=== PATIENT | male | born 1945 ===

== ENCOUNTER 2024-01-25 13:06 | Emergency (ER) | payer MEDICARE, SELFPAY ==
[2024-01-25] VITALS (9 sets, daily range): BP systolic 113–162; BP diastolic 72–93; PULSE 85–113; RESP 12–20; TEMP 36.5–36.8; O2SAT 97–100
--- NOTE | ~2024-01-25 | CT_ITS ---
EXAMINATION: CT brain wo con DATE: 01/25/2024 15:27 INDICATION: Facial numbness TECHNIQUE: Computed tomography (CT) of the head was performed without intravenous contrast. Sagittal and coronal reconstructions were performed. The mA was adjusted according to patient size. Iterative reconstruction technique was employed. The dose-length product was 983.67 mGy-cm. COMPARISON: None FINDINGS: No acute intracranial hemorrhage, acute infarction or abnormal extra axial fluid collection. There is mild scattered white matter hypoattenuation consistent with chronic small vessel ischemic disease. S ymmetric prominence of the sulci consistent with mild age-appropriate diffuse cerebral volume loss. V entricles are normal and symmetric with normal variant cavum septum pellucidum anteriorly.. No mass/m ass effect. The orbitsand paranasal sinuses are normal. Bilateral mastoid effusions. IMPRESSION: 1. Normal aging brain. No acute intracranial process. 2. Bilateral mastoid effusions. Reviewed, dictated and finalized at location A.
--- NOTE | 2024-01-25 13:12 | ECG_ITS ---
Test Date: 2024-01-25 13:15:11 Measurements Intervals [place] Rate: 85 P: 31 ND: 190 QRS: 6 QRSD: 94 T: 32 QT: 324 QTc: 387 Interpretive Statements SINUS RHYTHM LOW QRS VOLTAGE IN PRECORDIAL LEADS [QRS DEFLECTION < 1.0 mV IN CHEST LEADS] NONSPECIFIC T-WAVE ABNORMALITY No previous ECG available for comparison Electronically Signed On 01-25-2024 14:19:50 CDT by Alejandro Rogers M.D.
[2024-01-25 13:17] LABS: Glucose Point of Care 278 mg/dl (65-105)
[2024-01-25 15:00] LABS: Glucose Point of Care 238 mg/dl (65-105)
--- NOTE | 2024-01-25 16:36 | ED.GENADULT ---
HPI - General Adult General Chief complaint: Neuro Symptoms/Deficit Stated complaint: right side facial numbness x 4 days Time Seen by Provider: 01/25/24 15:04 History of Present Illness HPI narrative: Patient is a 78-year-old male who presents to the emergency department this afternoon from [facility] due to concern for right-sided facial numbness for the past 4 days. Patient felt as though his symptoms worsen disease or decided to come to the emergency department for further evaluation. Patient denies any additional symptoms including blurry vision, focal weakness, headaches, extremity numbness and tingling. Patient has no facial weakness and good symmetry on initial triage assessment, patient reports equal sensation to bilateral face on examination. Denies any chest pain or shortness of breath, any nausea, vomiting or abdominal pain and denies any urinary symptoms including dysuria. No additional symptoms or concerns at this time. Related Data Home Medications Medication Instructions Recorded Confirmed amlodipine 10 mg tablet 10 mg PO DAILY 11/14/22 01/22/24 aspirin 81 mg tablet,delayed 81 mg PO DAILY 11/14/22 01/22/24 release clopidogrel 75 mg tablet 75 mg PO DAILY 11/14/22 01/22/24 dapagliflozin propanediol 10 mg 10 mg PO DAILY 11/14/22 01/22/24 tablet (Farxiga) duloxetine 60 mg capsule,delayed 60 mg PO DAILY 11/14/22 01/22/24 release ergocalciferol (vitamin D2) 1,250 1,250 mcg PO WEEKLY 11/14/22 01/22/24 mcg (50,000 unit) capsule furosemide 40 mg tablet 40 mg PO .Every Other Day 11/14/22 01/22/24 gabapentin 300 mg capsule 300 mg PO TID 11/14/22 01/22/24 levothyroxine 75 mcg capsule 75 mcg PO DAILY 11/14/22 01/22/24 lidocaine 4 % topical patch 1 patch topical DAILY PRN 11/14/22 01/22/24 losartan 100 mg tablet 100 mg PO DAILY 11/14/22 01/22/24 metoprolol tartrate 25 mg tablet 25 mg PO BID 11/14/22 01/22/24 pantoprazole 40 mg tablet,delayed 40 mg PO QAM 11/14/22 01/22/24 release rosuvastatin 40 mg tablet 40 mg PO DAILY 06/22/23 08/29/24 Allergies Allergy/AdvReac Type Severity Reaction Status Date / Time nitroglycerin AdvReac Mild Low Blood Verified 01/25/24 13:11 Pressure Review of Systems Review of Systems: All systems are reviewed and are negative unless stated otherwise in the HPI. [facility] Past Medical History Medical History Anemia Diabetes mellitus Essential hypertension History of multinodular goiter Hx of completed stroke Hx of herpes zoster Hyperlipidemia Obstructive sleep apnea Type 2 diabetes mellitus Vitamin D deficiency Surgical History Surgical History History of ear, nose, and throat (ENT) surgery Family History Family History Mother Heart disease Father Heart disease Diabetes mellitus Social History Social History Smoking status: Never smoker Alcohol intake: never Substance use: never Exam Narrative: General: Alert, awake, afebrile, in no acute distress. HEENT: PERRL, no rhinorrhea, no post nasal drip, oropharynx clear. Cardiovascular: Regular rate and rhythm, no murmurs, rubs or gallops, no peripheral edema. Respiratory: Clear to auscultation bilaterally, no tachypnea, no wheezing, no rhonchi, no rubs, no respiratory distress. Abdomen: Soft, nontender, nondistended, no rebound, no guarding, no peritoneal signs. Musculoskeletal: No joint swelling or deformity, normal muscle tone. Skin: No rashes or petechia, no signs of infection. Neurological: Alert and oriented to person, place, and time. Follows all commands. No focal deficits, 5/5 motor strength in the bilateral upper and lower extremity, sensation intact in the bilateral upper and lower extremity, cranial nerves 2-12 grossly intact, speech is clear and fluent. [place]
[2024-01-25 16:39] LABS: Basophils Absolute Auto 0.1 K/mm3 (0.0-0.1); Basophils Percent Auto 0.6 % (0.2-1.2); Eosinophils Absolute Auto 0.2 K/mm3 (0-0.3); Eosinophils Percent Auto 1.6 % (0-4.4); Hematocrit 38.3 % (42.0-52.0); Hemoglobin 12.3 g/dL (14.0-18.0); Immature Granulocyte Absolute 0.03 K/mm3 (0.00-0.031); Immature Granulocyte Percent A 0.3 % (0-0.5); Lymphocytes Absolute Auto 1.71 K/mm3 (0.9-3.2); Lymphocytes Percent Auto 15.7 % (18.3-44.2); Mean Corpuscular HGB Conc 32.1 g/dl (32-36); Mean Corpuscular Hemoglobin 27.8 pg (26-34); Mean Corpuscular Volume 86.7 fl (80-100); Mean Platelet Volume 8.7 fl (7.4-10.4); Monocytes Absolute Auto 0.6 K/mm3 (0.1-0.6); Monocytes Percent Auto 5.9 % (2.6-8.5); Neutrophils Absolute Auto 8.3 K/mm3 (1.3-6.7); Neutrophils Percent Auto 75.9 % (45.5-73.1); Platelet Count Result 254 k/mm3 (150-375); Red Blood Count 4.42 M/mm3 (4.6-6.20); Red Cell Distribution Width 15.7 % (11.5-14.5); White Blood Count 10.9 K/mm3 (4.5-10.0)
[2024-01-25 16:48] LABS: Alanine Aminotransferase 24 U/L (6-50); Albumin Level 3.7 g/dL (3.5-5.1); Alkaline Phosphatase 136 U/L (38-126); Anion Gap 6 mmol/L (4-12); Aspartate Amino Transferase 30 U/L (17-59); Bilirubin,Total 0.8 mg/dL (0.2-1.3); Blood Urea Nitrogen 22 mg/dL (9-20); Calcium 8.7 mg/dL (8.4-10.2); Carbon Dioxide 38 mmol/L (22-30); Chloride 92 mmol/L (98-107); Estimated CRCL calculation 44 ml/min; Estimated Glomerular Filt Rate 42; Glucose 190 mg/dL (65-110); Magnesium 1.7 mg/dL (1.6-2.3); Potassium 3.2 mmol/L (3.4-5.0); Sodium 136 mmol/L (137-145)
[2024-01-25] MEDS: POTASSIUM CHLORIDE 20 MEQ PACKET (FOR LIQUID) 40 MEQ PO (17:54)
== END 2024-01-25 23:00 ==
PROVIDERS: Emergency Provider Emergency Medicine; PCP Internal Medicine
DX: R20.2 Paresthesia of skin (principal); E87.6 Hypokalemia; D64.9 Anemia, unspecified; E11.9 Type 2 diabetes mellitus without complications; I10 Essential (primary) hypertension; G47.30 Sleep apnea, unspecified
CPT/HCPCS: 36415; 70450; 80053; 82948; 83735; 85025; 93005; 99284; A9270

== ENCOUNTER 2024-11-16 14:05 | Outpatient (CLI) | payer MEDICARE, SELFPAY ==
[2024-11-16 14:25] LABS: Basophils Absolute Auto 0.1 K/mm3 (0.0-0.1); Basophils Percent Auto 0.6 % (0.2-1.2); Eosinophils Absolute Auto 0.2 K/mm3 (0-0.3); Eosinophils Percent Auto 1.6 % (0-4.4); Hemoglobin 15.5 g/dL (14.0-18.0); Immature Granulocyte Absolute 0.03 K/mm3 (0.00-0.031); Immature Granulocyte Percent A 0.3 % (0-0.5); Lymphocytes Absolute Auto 2.99 K/mm3 (0.9-3.2); Mean Corpuscular HGB Conc 32.3 g/dl (32-36); Mean Corpuscular Hemoglobin 26.9 pg (26-34); Mean Corpuscular Volume 83.3 fl (80-100); Monocytes Absolute Auto 0.8 K/mm3 (0.1-0.6); Neutrophils Percent Auto 63.5 % (45.5-73.1); Platelet Count Result 267 k/mm3 (150-375); Red Blood Count 5.76 M/mm3 (4.6-6.20); White Blood Count 11.1 K/mm3 (4.5-10.0)
[2024-11-16 16:46] LABS: Alanine Aminotransferase 17 U/L (6-50); Albumin Level 4.3 g/dL (3.5-5.1); Alkaline Phosphatase 110 U/L (38-126); Anion Gap 14 mmol/L (4-12); Aspartate Amino Transferase 54 U/L (17-59); Bilirubin,Total 1.1 mg/dL (0.2-1.3); Blood Urea Nitrogen 36 mg/dL (9-20); Calcium 9.3 mg/dL (8.4-10.2); Carbon Dioxide 29 mmol/L (22-30); Chloride 97 mmol/L (98-107); Estimated Glomerular Filt Rate 33; Glucose 211 mg/dL (65-110); Lactate Dehydrogenase 184 U/L (120-246); Potassium 3.2 mmol/L (3.4-5.0); Sodium 140 mmol/L (137-145); Total Protein 8.3 g/dL (6.3-8.2)
[2024-11-16 17:03] LABS: Iron 82 ug/dL (49-181)
[2024-11-16 17:26] LABS: Percent Iron Saturation 21 % (20-50)
[2024-11-16 17:51] LABS: Folic Acid 16.4 ng/mL (2.76->20)
[2024-11-19 11:59] LABS: Soluble Transferrin Receptor. 2.13 mg/L (0.76-1.76)
[2024-11-19 12:08] LABS: Methylmalonic Acid. 385 nmol/L (69-390)
== END 2024-11-16 14:06 | disposition home or self-care (01) ==
PROVIDERS: PCP Internal Medicine; Visit Provider Internal Medicine Hematology & Oncology
DX: D64.9 Anemia, unspecified (principal)
CPT/HCPCS: 36415; 80053; 82607; 82728; 82746; 83540; 83550; 83615; 83921; 84238; 85025